=== PATIENT | female | born 1945 | race Caucasian/White ===

== ENCOUNTER 2018-05-16 02:06 | Observation (INO) | payer OTHER ==
[~2018-05-16] VITALS: Ht 167.6 cm; Wt 143.6 kg
[2018-05-16 03:02] LABS: BASOPHIL (%) 0.4 % (0-1); EOSINOPHIL (%) 3.6 % (0-5); EOSINOPHIL COUNT 0.4 K/uL (0-0.3); HEMATOCRIT 34.1 % (36.0-46.0); HEMOGLOBIN 10.9 G/DL (11.9-15.5); IMMATURE GRANULOCYTE (%) 0.7 % (0.0-0.7); LYMPHOCYTE (%) 11.9 % (15-42); LYMPHOCYTE COUNT 1.3 K/uL (1.0-2.8); MCH 27.3 PG (29.0-34.0); MCV 85.5 FL (83-99); MONOCYTE (%) 8.7 % (3-12); MONOCYTE COUNT 0.9 K/uL (0-0.8); NEUTROPHIL (%) 74.7 % (45-76); PLATELET COUNT 215 K/uL (156-360); RBC DIS.WIDTH-CV 14.9 % (11.8-14.6); RBC DIS.WIDTH-SD 46.7 % (39-53); RED BLOOD COUNT 3.99 M/uL (3.80-5.20); WHITE BLOOD COUNT 10.7 K/uL (4.1-10.2)
[2018-05-16 03:13] LABS: ALBUMIN 3.7 g/dL (3.2-4.8)
[2018-05-16 03:14] LABS: CHLORIDE 107 mEq/L (99-109); ERTH.SED.RATE 93 MM/HR (0-30); POTASSIUM 4.5 mEq/L (3.7-5.4); SODIUM 139 mEq/L (136-147)
[2018-05-16 03:16] LABS: GLUCOSE 125 mg/dL (70-99); TOTAL PROTEIN 7.4 g/dL (6.4-8.3)
[2018-05-16 03:18] LABS: TOTAL BILIRUBIN 0.3 mg/dL (0.0-1.0)
[2018-05-16 03:19] LABS: ALKALINE PHOSPHATASE 133 IU/L (3-129)
[2018-05-16 03:20] LABS: CREATININE 1.3 mg/dL (0.6-1.3); GFR ESTIMATE (CALCULATED) 43 mL/min/
[2018-05-16 03:21] LABS: AST (GOT) 14 IU/L (2-34); UREA NITROGEN (BUN) 33 mg/dL (9-23)
[2018-05-16 03:22] LABS: ALT (GPT) 10 IU/L (3-49)
[2018-05-16 03:24] LABS: TROP-I INTERPRETATION NEGATIVE; TROPONIN-I < 0.01 ng/mL (0.0-0.30)
[2018-05-16] MEDS ORDERED: ALEVE220 M2 PO (04:22)
[2018-05-16] MEDS ORDERED: ALLOPURINOL100 MG PO (04:23)
[2018-05-16] MEDS ORDERED: NORVASC5 MG PO (04:23)
[2018-05-16] MEDS ORDERED: ADULT ASPIRIN81 MG PO (04:23)
[2018-05-16] MEDS ORDERED: CARDURA4 MG PO (04:24)
[2018-05-16] MEDS ORDERED: COLCRYS0.6 MG PO (04:24)
[2018-05-16] MEDS ORDERED: TIROSINT25 MCG PO (04:25)
[2018-05-16] MEDS ORDERED: LASIX40 MG PO (04:25)
[2018-05-16] MEDS ORDERED: PROBIOTIC1 EAC1 PO (04:26)
[2018-05-16] MEDS ORDERED: LOPRESSOR50 MG PO (04:26)
[2018-05-16] MEDS ORDERED: OMEPRAZOLE40 M1 PO (04:26)
[2018-05-16] MEDS ORDERED: ULTRAM50 MG PO (04:27)
[2018-05-16] MEDS ORDERED: ZOLOFT50 MG PO (04:27)
[2018-05-16] MEDS ORDERED: VITAMIN B-12500 MC5 SL (04:28)
[2018-05-16] MEDS ORDERED: VITAMIN D31000 UNIT PO (04:29)
[2018-05-16 04:53] LABS: C-REACTIVE PROTEIN 48.5 MG/L (0-10)
[2018-05-16 08:28] VITALS: BP 147/67
[2018-05-16] MEDS ORDERED: ERGOCALCIF50000 UNIT PO (08:59)
[2018-05-16] MEDS ORDERED: CELECOXIB200 MG PO (08:59)
[2018-05-16] MEDS ORDERED: LEVAQUIN500 MG PO (09:00)
[2018-05-16 12:06] VITALS: BP 132/60
[2018-05-16 15:35] VITALS: BP 137/63
[2018-05-16 19:38] VITALS: BP 133/60
[2018-05-17 00:42] VITALS: BP 112/53
[2018-05-17 04:03] VITALS: BP 113/57
[2018-05-17 07:22] LABS: BASOPHIL (%) 0.3 % (0-1); EOSINOPHIL (%) 4.5 % (0-5); EOSINOPHIL COUNT 0.4 K/uL (0-0.3); HEMATOCRIT 32.6 % (36.0-46.0); HEMOGLOBIN 10.1 G/DL (11.9-15.5); IMMATURE GRANULOCYTE (%) 0.5 % (0.0-0.7); LYMPHOCYTE (%) 17.1 % (15-42); LYMPHOCYTE COUNT 1.5 K/uL (1.0-2.8); MCV 87.2 FL (83-99); MONOCYTE (%) 8.9 % (3-12); MONOCYTE COUNT 0.8 K/uL (0-0.8); NEUTROPHIL (%) 68.7 % (45-76); NEUTROPHIL COUNT 5.9 K/uL (1.8-6.4); PLATELET COUNT 182 K/uL (156-360); RBC DIS.WIDTH-CV 15.2 % (11.8-14.6); RBC DIS.WIDTH-SD 48.3 % (39-53); RED BLOOD COUNT 3.74 M/uL (3.80-5.20); WHITE BLOOD COUNT 8.6 K/uL (4.1-10.2)
[2018-05-17 07:36] VITALS: BP 138/65
[2018-05-17 07:43] LABS: CHLORIDE 108 MEQ/L (99-109); CREATININE 1.3 MG/DL (0.6-1.3); GFR ESTIMATE (CALCULATED) 43 mL/min/; GLUCOSE 106 mg/dL (70-99); POTASSIUM 4.7 MEQ/L (3.7-5.4); SODIUM 136 MEQ/L (136-147); UREA NITROGEN (BUN) 33 mg/dL (9-23)
[2018-05-17] MEDS ORDERED: BENADRYL25 MG PO (08:13)
== END 2018-05-17 10:55 | disposition home or self-care (01) ==
LOC: EME 02:06 → EDOF 06:02 → 2EASTP 06:02 → ENRESERV 06:04 → 2EASTP 08:15
PROVIDERS: Emergency Medicine; Physician Assistant
DX: L03.115 Cellulitis of right lower limb (principal); L03.116 Cellulitis of left lower limb; L23.9 Allergic contact dermatitis, unspecified cause; I10 Essential (primary) hypertension; E03.9 Hypothyroidism, unspecified; M10.9 Gout, unspecified; E66.01 Morbid (severe) obesity due to excess calories; M79.605 Pain in left leg; M79.604 Pain in right leg; Z82.49 Family history of ischemic heart disease and other diseases of the circulatory system; Z83.3 Family history of diabetes mellitus; Z79.82 Long term (current) use of aspirin
CPT/HCPCS: 80048; 80053; 83880; 84484; 85025; 85651; 86140; 87040; 87641; 93005; 93970; 99281; 99285; G0378; J1650; J2543; J7050